=== PATIENT | female | born 1950 | race Caucasian/White ===

== ENCOUNTER 2025-09-11 09:44 | Emergency (ER) | payer MEDICARE, OTHER, SELFPAY ==
[2025-09-11 09:45] VITALS: BP 164/89
--- NOTE | 2025-09-11 10:47 | ED.GENMED ---
History of Present Illness
General
Chief Complaint: Vaginal Bleeding
Time Seen by Provider: 09/11/25 10:36
History of Present Illness
History of Present Illness:
72-year-old female with past medical history of colon cancer currently in remission and cervical polyp removed about 25 years ago who presents with several days of intermittent vaginal bleeding and passage of small clots. Had 1 episode of pelvic
cramping this weekend but that has since resolved. Was seen by her primary care doctor for left back pain last week that was attributed to a muscular strain and this has since resolved. Denies any urinary symptoms. No abdominal pain. No fevers
or chills. Last colonoscopy was a year ago and within normal limits.
Phy Exam
General Physical Exam
General Presentation: well appearing and no apparent distress
General Skin: warm and dry
General Habitus: normal
General Mental: alert
General Hydration: appears well hydrated
ENT Exam
ENT Exam: EOMI, pharynx normal, neck supple and normocephalic
Eye Exam
Eye Exam: PERRL, cornea clear and conjunctiva normal
Cardiovascular Exam
Cardiovascular Exam: regular rate/rhythm, no edema, no murmur and normal peripheral pulses
Pulmonary Exam
Pulmonary Exam: lungs clear, no respiratory distress, no rales, no crackles, no rhonchi, no stridor, no wheezing and no cough
Gastrointestinal Exam
Gastrointestinal Exam: normal bowel sounds, non tender, soft, no organomegaly, no pulsatile mass and non distended
Neurological Exam
Neurological Exam: alert, oriented x3, no motor deficits and speech normal
Musculoskeletal Exam
Musculoskeletal Exam: full ROM and no edema
Skin Exam
Skin Exam: normal color, warm/dry, no rash and no petechia
Psychiatric Exam
Psychiatric Exam: normal mood/affect
Course
Orders/Labs/Results
Orders:
Orders
09/11/25 10:44
Pelvis & Transvaginal US [US Pelvis W Transvag Combined] Urgent
Comment:
Reason For Exam: postmenapausal bleeding
09/11/25 10:58
Type+Screen Urgent
Complete Blood Count/With Diff Urgent
Comprehensive Metabolic Panel Urgent
PTT Urgent
Prothrombin Time Urgent
Urinalysis Reflex To Culture Urgent
Date Specimen was Collected: 09/11/25
Time Specimen was Collected: 10:57
Urine Microscopic Reflex Cult Urgent
Urine Culture Urgent
VASYL Source: U
Specimen Description:
Date Specimen was Collected: 09/11/25
Time Specimen was Collected: 10:57
Abnormal Lab Results
09/11/25
10:58
RBC 4.18 L 10^6/uL
(4.20-5.40)
MCH 32.1 H pg
(27.0-31.0)
Lymphocytes % 18.5 L %
(20.5-51.1)
Ur Occult Blood Reflex 2+ A
(Negative)
Leukocyte Esterase Rfl 1+ A
(Negative)
Urine Bacteria (Reflex) Few A
(Negative)
Urine Albumin (Reflex) 1+ A
(Neg - Trace)
09/11/25 10:58
09/11/25 10:58
Vital Signs
Initial and Last Documented VS:
Initial Vital Signs
Temp Pulse Resp BP Pulse Ox
36.9 C 99 20 164/89 95
09/11/25 09:45 09/11/25 09:45 09/11/25 09:45 09/11/25 09:45 09/11/25 09:45
Last Documented Vital Signs
Temp Pulse Resp BP Pulse Ox
36.9 C 81 22 144/80 94
09/11/25 09:45 09/11/25 13:30 09/11/25 13:30 09/11/25 11:06 09/11/25 13:30
MDM/Problems Addressed
Differential Diagnosis Includes:
Uterine mass, polyp, atrophy or other abnormality.
MDM/Problems Addressed:
PCP shows no anemia. Hemoglobin 13.4. UA obtained and is contaminated. No evidence of obvious infection. Given no urinary symptoms no need to repeat UA for clean-catch. Pelvic ultrasound obtained and shows likely endometrial hyperplasia
although malignancy cannot be ruled out. Discussed these findings with the patient and gave her a copy of the ultrasound report. She will follow-up with her chief underwriter regarding her postmenopausal bleeding and ultrasound findings. Discussed
that if bleeding were to return and worsen she should return to the emergency department. Patient currently feels well has no pain and is not experiencing any bleeding.
*Pulse Oximetry
SaO2: 95
Oxygen Mode of Delivery: Room air
Patient hypoxic: no
*Critical Care Note
Total Time (30-74mins, 75-104mins- exclusive of procedures): Not Applicable
ED Attending Note
-
Portions of this chart may have been created with voice recognition software.� Occasional wrong word or��sound alike� substitutions may have occurred due to the inherent limitations of voice recognition software.
Discharge Plan
Departure
Patient Disposition: Home (Routine Discharge)
Date of Disposition: 09/11/25
Time of Disposition: 13:32
Patient with high blood pressure during this ER visit?: No
Discharge Problem:
Post-menopausal bleeding, Endometrial hyperplasia
Prescriptions:
No Action
ibuprofen 200 MG tablet
600 mg PO PRN PRN (Reason: headache, pain)
zinc 50 MG tablet
50 mg PO DAILY
rosuvastatin 10 MG tablet
10 mg PO DAILY
bupropion HCl 150 MG tablet extended release 24 hr
150 mg PO DAILY
Cholecalciferol (Vitamin D3) [Vitamin D3] 50 MCG Capsule
50 mcg PO DAILY
Super B Maxi Complex Caplet
1 tab PO DAILY
melatonin 3 MG tablet
1.5 mg PO PRN PRN (Reason: sleep)
hydrocodone-acetaminophen 1 TABLET tablet
1 tab PO Q4HPRN PRN (Reason: moderate to severe pain) Qty: 25 0RF
Referrals:
Nate Dunham MD [Family Provider, Family Practice]
Activity Restrictions/Additional Instructions:
You are seen in the Emergency Department today for vaginal bleeding. A copy of your ultrasound report was given to you. Is important you follow-up with your chief underwriter regarding your vaginal bleeding for a biopsy. Return to the ER if your
vaginal bleeding returns and worsens or you develop any other new symptoms.
Interventions
Interventions:
*General Assessment Last Done: 09/11/25 11:03
*Neglect/Abuse Screening Last Done: 09/11/25 09:45
*ED COVID-19 Vaccine History Last Done: 09/11/25 11:03
*ED Influenza Vaccine History Last Done: 09/11/25 11:03
*Risk Screen - Suicide (C-SSRS) Last Done: 09/11/25 09:49
ED-Female Genitourinary Assessment Last Done: 09/11/25 11:03
Discharge Date and Time
Print Language: MALAY
[2025-09-11 11:06] VITALS: BP 144/80
[2025-09-11 11:14] LABS: Urine Character Clear (Clear)
[2025-09-11 11:19] LABS: Hematocrit 38.8 % (37.0-47.0); Hemoglobin 13.4 g/dL (12.0-16.0); Mean Corp Hgb Conc. 34.5 g/dL (33.0-37.0); Mean Corpuscular Volume 92.8 fL (81.0-99.0); Nucleated Red Blood Cells % 0 %; Platelet Count 229 10^3/uL (130-400); Red Cell Dist. Width 12.9 % (11.5-14.5)
[2025-09-11 11:28] LABS: ALT (SGPT) 16 U/L (0-35); APTT 25.3 Sec (23.4-35.0); AST (SGOT) 21 U/L (14-36); Albumin 4.3 g/dl (3.5-5.0); Alkaline Phosphatase 63 U/L (38-126); Blood Urea Nitrogen 12 mg/dl (7-17); Calcium 9.8 mg/dl (8.4-10.2); Carbon Dioxide 28 mmol/L (22-30); Chloride 106 mmol/L (98-107); Glucose 99 mg/dl (70-99); INR 1.01; PT 13.4 Sec (11.4-14.6); Potassium 4.4 mmol/L (3.5-5.1); Sodium 138 mmol/L (135-145); Total Protein 6.8 g/dl (6.3-8.2); eGFR > 60.00
[2025-09-11 11:49] LABS: Urine Squamous Cell >30 /LPF (Few)
[2025-09-11 11:50] LABS: Urine Red Blood Cell 0-2 /HPF (0-2)
== END 2025-09-11 14:16 | disposition home or self-care (01) ==
LOC: EMR 09:44
PROVIDERS: EMERGENCY PHYSICIAN Emergency Medicine; FAMILY PHYSICIAN Family Medicine
DX: N95.0 Postmenopausal bleeding (principal); N85.00 Endometrial hyperplasia, unspecified; Z85.038 Personal history of other malignant neoplasm of large intestine
CPT/HCPCS: 99284; 76830; 76856; 80053; 81003; 81015; 85025; 85610; 85730; 86850; 86900; 86901; 87086